=== PATIENT | female | born 1980 | race Caucasian/White ===

== ENCOUNTER 2020-11-03 06:42 | Day surgery (SDC) | payer MEDICAID, SELFPAY ==
[~2020-11-03] VITALS: Ht 157.5 cm; Wt 74.8 kg
[2020-11-03 07:12] LABS: HCG,QUAL RESULT NEGATIVE (NEGATIVE)
[2020-11-03] MEDS ORDERED: fentaNYL CITRATE/PF 100 MCG/2 ML AMP ONE (09:43)
[2020-11-03] MEDS ORDERED: NS IRRIG SOLN 1000 ML IR ONE (09:43)
[2020-11-03] MEDS ORDERED: KETOROLAC TROMETHAMINE 30 MG VIAL ONE (09:43)
[2020-11-03] MEDS ORDERED: DEXAMETHASONE SOD PHOSPHATE 4 MG/ML VIAL ONE (09:43)
[2020-11-03] MEDS ORDERED: PROPOFOL 200MG/ 20ML VIAL (DIPRIVAN) IV ONE (09:43)
[2020-11-03] MEDS ORDERED: ONDANSETRON HCL 4 MG/2 ML VIAL ONE (09:43)
[2020-11-03] MEDS ORDERED: LR 1,000 ML IV.SOLN IV ONE (09:43)
[2020-11-03 13:17] VITALS: BP_SYST 111
== END 2020-11-03 11:43 | disposition home or self-care (01) ==
LOC: SDS 06:42 → SMU 06:45 → SDS 11:43
PROVIDERS: ATTEND Obstetrics & Gynecology
DX: N92.0 Excessive and frequent menstruation with regular cycle (principal); D25.9 Leiomyoma of uterus, unspecified; I10 Essential (primary) hypertension; E11.9 Type 2 diabetes mellitus without complications; Z20.822 Contact with and (suspected) exposure to COVID-19; Z79.899 Other long term (current) drug therapy
CPT/HCPCS: 58563; 82962; 84703; U0003; J1100; J1885; J2405; J2704; J3010; J7120

== ENCOUNTER 2020-12-16 06:18 | Inpatient (IN) | payer MEDICAID, SELFPAY ==
[~2020-12-16] VITALS: Ht 157.5 cm; Wt 76.7 kg
[2020-12-16] MEDS ORDERED: MIDAZOLAM HCL 5 MG/5 ML VIAL IVP ONE (07:20)
[2020-12-16] MEDS ORDERED: ONDANSETRON HCL 4 MG/2 ML VIAL IVP ONE (07:20)
[2020-12-16] MEDS ORDERED: NS 1000 ML IV.SOLN IV ONE (07:20)
[2020-12-16] MEDS ORDERED: SEVOFLURANE 15 MIN GAS INH ONE (07:20)
[2020-12-16] MEDS ORDERED: PROPOFOL 200MG/ 20ML VIAL (DIPRIVAN) IV ONE (07:20)
[2020-12-16] MEDS ORDERED: BUPIVACAINE /PF 0.25% 30 ML VIAL INJ ONE (07:20)
[2020-12-16] MEDS ORDERED: LR 1,000 ML IV.SOLN IV ONE (07:20)
[2020-12-16] MEDS ORDERED: ROCURONIUM BROMIDE 10 MG/ML (ZEMURON) IV ONE (07:20)
[2020-12-16] MEDS ORDERED: ALFENTANIL HCL 1000 MCG/2 ML AMP IVP ONE (07:20)
[2020-12-16] MEDS ORDERED: CEFAZOLIN 1 GM IVPB PREMIX 100 ML IV ONE (07:33)
[2020-12-16] MEDS ORDERED: KETOROLAC TROMETHAMINE 30 MG VIAL IVP PRN (07:45)
[2020-12-16] MEDS ORDERED: IBUPROFEN 800 MG TABLET PO PRN (07:45)
[2020-12-16] MEDS ORDERED: OXYCODONE/ACETAMINOPHEN 5-325 TABLET PO PRN (07:45)
[2020-12-16] MEDS ORDERED: SIMETHICONE 80 MG TAB.CHEW PO PRN (07:45)
[2020-12-16] MEDS ORDERED: ONDANSETRON HCL 4 MG/2 ML VIAL IVP PRN ×2 (07:45→08:30)
[2020-12-16] MEDS ORDERED: BUPIVACAINE LIPOSOME/PF 266 MG/20 ML VIAL INFIL ONE (07:48)
[2020-12-16] MEDS ORDERED: METF-834 PO (07:59)
[2020-12-16] MEDS ORDERED: FERR325T30 PO (07:59)
[2020-12-16] MEDS ORDERED: fentaNYL CITRATE/PF 100 MCG/2 ML AMP IVP PRN ×2 (08:30)
[2020-12-16] MEDS ORDERED: METOCLOPRAMIDE HCL 10 MG/2 ML VIAL IVP PRN (08:30)
[2020-12-16] MEDS: fentaNYL CITRATE/PF 100 MCG/2 ML AMP ONE ×2 (09:05→09:15)
[2020-12-16 09:50] VITALS: BP_SYST 154
[2020-12-16] MEDS: HYDROmorphone 2 MG/ML VIAL IVP PRN ×3 (13:33→23:37)
[2020-12-16] MEDS: LR 1,000 ML IV SCH ×3 (13:36→21:41)
[2020-12-16 15:13] VITALS: BP_SYST 126
[2020-12-16 16:45] VITALS: BP_SYST 130
[2020-12-16] MEDS: DOCUSATE SODIUM 100 MG CAPSULE PO SCH ×2 (18:03→21:41)
[2020-12-16 20:00] VITALS: BP_SYST 98
[2020-12-16] MEDS ORDERED: TEMAZEPAM 15 MG CAPSULE PO PRN (21:00)
[2020-12-17 00:32] VITALS: BP_SYST 122
[2020-12-17] MEDS: HYDROmorphone 2 MG/ML VIAL IVP PRN (03:24)
[2020-12-17 07:47] LABS: BASOPHILS % (AUTO) 0.2 % (0.0-2.0); EOSINOPHILS % (AUTO) 0.1 % (0.0-4.0); HEMATOCRIT 30.9 % (36-48); HEMOGLOBIN 10.1 g/dL (12.0-16.0); LYMPHOCYTES # (AUTO) 1.1 K/uL (1.0-5.5); LYMPHOCYTES % (AUTO) 12.1 % (20.5-51.5); MEAN CORPUSCULAR HEMOGLOBIN 27 pg (27-31); MEAN CORPUSCULAR HGB CONC 33 % (32-36); MEAN CORPUSCULAR VOLUME 83 fL (79.0-98.0); MONOCYTES # (AUTO) 0.7 K/uL (0.0-1.0); MONOCYTES % (AUTO) 7.2 % (1.7-9.3); NEUTROPHILS # (AUTO) 7.5 K/uL (1.8-7.7); NEUTROPHILS % (AUTO) 80.4 % (40.0-70.0); PLATELET COUNT (AUTO) 261 K/uL (130-430); RED BLOOD CELL COUNT(AUTO) 3.72 MIL/uL (4.2-6.2); RED CELL DISTRIBUTION WIDTH 18.2 % (9.0-15.0); WHITE BLOOD COUNT (AUTO) 9.4 K/uL (4.8-10.8)
[2020-12-17] MEDS: OXYCODONE/ACETAMINOPHEN 5-325 TABLET PO PRN ×3 (08:28→20:18)
[2020-12-17] MEDS: LR 1,000 ML IV SCH ×3 (08:29→23:45)
[2020-12-17] MEDS: DOCUSATE SODIUM 100 MG CAPSULE PO SCH ×2 (08:31→20:16)
[2020-12-17 08:34] VITALS: BP_SYST 113
[2020-12-17 12:01] VITALS: BP_SYST 118
[2020-12-17 16:00] VITALS: BP_SYST 124
[2020-12-17 19:00] VITALS: BP_SYST 112
[2020-12-17 20:00] VITALS: BP_SYST 112
[2020-12-18 00:18] VITALS: BP_SYST 120
[2020-12-18] MEDS: OXYCODONE/ACETAMINOPHEN 5-325 TABLET PO PRN ×2 (01:29→06:59)
[2020-12-18] MEDS ORDERED: PERC10 PO ×2 (02:22→02:23)
[2020-12-18] MEDS ORDERED: OXYC-128 PO (02:30)
[2020-12-18] MEDS ORDERED: IBUP-1971 PO (02:31)
[2020-12-18] MEDS ORDERED: DOCU-144 PO (02:32)
[2020-12-18 11:18] VITALS: BP_SYST 116
== END 2020-12-18 10:45 | disposition home or self-care (01) | DRG 519 ==
LOC: SDS 06:18 → SMU 06:19 → SDS 07:30 → SMU 07:39
PROVIDERS: ADMIT Obstetrics & Gynecology; ATTEND Obstetrics & Gynecology
PROC: 0UT90ZL Resection of Uterus, Supracervical, Open Approach (ICD-10-PCS; principal; 2020-12-16 07:47)
DX: D25.9 Leiomyoma of uterus, unspecified (principal); N92.0 Excessive and frequent menstruation with regular cycle; Z20.822 Contact with and (suspected) exposure to COVID-19
CPT/HCPCS: 36415; 82962; 84702; 85025; 86886; 86900; 86901; 87081; 88307; C9290; J0690; J1170; J2250; J2405; J2704; J3010; J3490; J7030; J7120; U0003